=== PATIENT | male | born 1995 | race Caucasian/White ===

== ENCOUNTER 2018-09-03 12:44 | Emergency (ER) | payer BC, OTHER ==
[2018-09-03 12:53] VITALS: BP 126/66; PULSE 84; RESP 20; TEMP 98
[2018-09-03] MEDS ORDERED: DIPH,PERTUS(ACELL)TETVAC-LF 0.5 ML VIAL IM ONE (13:26)
--- NOTE | 2018-09-03 13:29 | ED ---
General Adult HPI - General Chief complaint: Fall Stated complaint: toe injury Time Seen by Provider: 09/03/18 12:57 Source: patient, RN notes reviewed Mode of arrival: ambulatory Limitations: no limitations - History of Present Illness Initial comments: Patient is a 22-year-old male presented to the emergency room today with a chief complaint of an injury to the right fifth toe that occurred 2 days ago. Patient does admit that his dog got loose and he had to run outside. He states he was barefoot and slipped on the ice causing a laceration to the fifth digit of the right foot. Patient states that he is unsure of his tetanus status. He does admit that he came here to the emergency room because he missed work yesterday and was told that he needed a work note. Patient denies any head injury or loss conscious. Denies any other complaints or symptoms. - Related Data Home Medications Medication Instructions Recorded Confirmed No Known Home Medications 09/03/18 09/03/18 Allergies Allergy/AdvReac Type Severity Reaction Status Date / Time No Known Allergies Allergy Verified 09/03/18 13:08 Review of Systems ROS Statement: Those systems with pertinent positive or pertinent negative responses have been documented in the HPI. ROS Other: All systems not noted in ROS Statement are negative. Past Medical History Additional Past Medical History / Comment(s): IgA nephropathy History of Any Multi-Drug Resistant Organisms: None Reported Past Surgical History: No Surgical Hx Reported Past Anesthesia/Blood Transfusion Reactions: No Reported Reaction Past Psychological History: ADD/ADHD Smoking Status: Never smoker Past Alcohol Use History: None Reported Past Drug Use History: None Reported - Past Family History Father Family Medical History: No Reported History Mother Additional Family Medical History / Comment(s): Bipolar General Exam - General Exam Comments Initial Comments: General: The patient is awake and alert, in no distress, and does not appear acutely ill. Eye: extra-ocular movements are intact. There is normal conjunctiva bilaterally. No signs of icterus. Musculoskeletal: Normal ROM, no tenderness. Strength 5/5. Sensation intact. Pulses equal bilaterally 2+. Neurological: A&O x 3. CN II-XII intact, There are no obvious motor or sensory deficits. Coordination appears grossly intact. Speech is normal. Skin: Does have a flap-type laceration approximately 1 cm to the right fifth toe. No active bleeding. Psychiatric: Cooperative, appropriate mood & affect, normal judgment. Limitations: no limitations Course Vital Signs 09/03/18 12:50 Temperature 98.0 F Pulse Rate 84 Respiratory 20 Rate Blood Pressure 126/66 O2 Sat by Pulse 99 Oximetry Medical Decision Making - Medical Decision Making Patient tetanus updated here in the emergency room. He states the main reason for coming here is that neither work note for work. Patient does have a laceration that digit of the right toe has been open for the past 2 days. Bandage was placed over top. Advised watching for signs of action. Advised return for any other concerns. Disposition Clinical Impression: Toe laceration Disposition: HOME SELF-CARE Condition: Good Additional Instructions: Please watch for any signs of infection which may include increased pain, swelling, redness, fever or chills. Please return to emergency room if the symptoms increase or worsen or for any other concerns. Is patient prescribed a controlled substance at d/c from ED?: No Referrals: None,Stated [Primary Care Provider] - 1-2 days Time of Disposition: 13:28
== END 2018-09-03 14:22 | disposition home or self-care (01) ==
LOC: EC 12:44
DX: S91.114A Laceration without foreign body of right lesser toe(s) without damage to nail, initial encounter (principal); Z23 Encounter for immunization; W00.0XXA Fall on same level due to ice and snow, initial encounter; Y92.89 Other specified places as the place of occurrence of the external cause
CPT/HCPCS: 90471; 90715; 99283

== ENCOUNTER → 2020-09-03 | Outpatient (CLI) | payer OTHER | END | disposition home or self-care (01) | LOC: LABWHC1 15:27 | PROVIDERS: ATTEND Family Medicine | DX: Z20.822 Contact with and (suspected) exposure to COVID-19 (principal) | CPT/HCPCS: U0003; C9803 ==

== ENCOUNTER 2021-04-02 19:49 | Emergency (ER) | payer OTHER ==
[2021-04-02 20:07] VITALS: RESP 18; TEMP 97.3
[2021-04-02] MEDS ORDERED: MORPHINE SULFATE 4 MG/ML SYRINGE IM STA (20:17)
--- NOTE | 2021-04-02 21:04 | CT ---
EXAMINATION TYPE: CT brain cspine wo con DATE OF EXAM: 04/02/2021 COMPARISON: None HISTORY: [address] DLP: 1396 mGycm Automated exposure control for dose reduction was used. Brain and cervical spine CT scan without contrast. Ventricles have normal size. There is no mass effect nor midline shift. There is no sign of intracran ial hemorrhage. Calvarium is intact. There is normal aeration of the mastoid sinuses. Cervical vertebra have normal alignment. Posterior elements are intact. Facet joints are intact. Disc spaces are fairly normal. Prevertebral soft tissues are intact. IMPRESSION: Normal CT scan of the cervical spine. No fracture. Normal CT scan of the brain.
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
[2021-04-02 21:37] VITALS: BP 118/72; PULSE 72
== END 2021-04-02 21:38 | disposition home or self-care (01) ==
LOC: EC 19:49
DX: S06.0X0A Concussion without loss of consciousness, initial encounter (principal); S00.81XA Abrasion of other part of head, initial encounter; M79.601 Pain in right arm; M79.605 Pain in left leg; F90.9 Attention-deficit hyperactivity disorder, unspecified type; Z87.891 Personal history of nicotine dependence; V40.9XXA Unspecified car occupant injured in collision with pedestrian or animal in traffic accident, initial encounter; Y92.410 Unspecified street and highway as the place of occurrence of the external cause
CPT/HCPCS: 99284; 96372; 72125; 70450; J2270

== ENCOUNTER → 2021-07-28 | Outpatient (CLI) | payer OTHER | END | disposition home or self-care (01) | LOC: LABWHC1 12:48 | PROVIDERS: ATTEND Family Medicine | DX: U07.1 COVID-19 (principal) | CPT/HCPCS: U0003; C9803; U0005 ==

== ENCOUNTER 2022-02-20 04:22 | Inpatient (IN) | payer OTHER ==
[2022-02-20 05:51] LABS: Basophils % (A) 1 %; Eosinophils # (A) 0.2 k/uL (0-0.7); Eosinophils % (A) 2 %; HCT 47.2 % (39.0-53.0); HGB 15.9 gm/dL (13.0-17.5); Lymphocytes # (A) 2.1 k/uL (1.0-4.8); Lymphocytes % (A) 24 %; MCHC 33.7 g/dL (31.0-37.0); MCV 89.1 fL (80.0-100.0); Mean Platelet Volume 7.7; Monocytes # (A) 0.5 k/uL (0-1.0); Monocytes % (A) 5 %; Neutrophils # (A) 5.6 k/uL (1.3-7.7); Neutrophils % (A) 66 %; Platelet Count 259 k/uL (150-450); WBC 8.5 k/uL (3.8-10.6)
--- NOTE | 2022-02-20 05:53 | ED ---
General Adult HPI - General Chief complaint: Overdose Stated complaint: Overdose Time Seen by Provider: 02/20/22 05:03 Source: EMS Mode of arrival: EMS - History of Present Illness Initial comments: Dictation was produced using [employer] dictation software. please excuse any gr ammatical, word or spelling errors. Chief Complaint: 26-year-old male presents emergency department for overdose History of Present Illness: 25-year-old male he has past medical history of IgA nephropathy. Patient brought in by EMS for overdose. Patient took several unknown pills at unknown times. Patient is a poor historian due to mental status changes. Patient states he does have some pain to his left ankle and left foot. Patient reports he took all these pills because voices were telling him to. Unable to obtain ROS secondary to mental status PHYSICAL EXAM: General Impression: Alert, eyes closed, not in acute distress, follows commands HEENT: Normocephalic atraumatic, extra-ocular movements intact, pupils equal and reactive to light bilaterally, mucous membranes moist. Cardiovascular: Heart regular rate and rhythm Chest: no retractions, no tachypnea Abdomen: abdomen soft, non-tender, non-distended, no organomegaly Musculoskeletal: Pulses present and equal in all extremities, no peripheral edema, no gross deformity to the left ankle and left foot Motor: no focal deficits noted Neurological: CN II-XII grossly intact, no focal motor or sensory deficits noted Skin: Intact with no visualized rashes ED course: 26-year-old male presents after overdose. He took several unknown pills over the course of an unknown amount of time. Vital signs upon arrival s hows heart rate 1:15, rest of vital signs within acceptable limits. Medical presentation not obvious for any specific toxidrome. Laboratory evaluation obtained per it CBC and markable P metabolic panel is negative. Tox labs are negative. No acidosis. No concern for toxic overdose at this time. Foot x-ray and ankle x-ray is negative. Patient presents with pill bottles brought in from the scene. Those included psych medications as well as blood pressure medications. Patient's vital signs were trended. His blood pressure is normal. Patient reevaluated at bedside at 6:23 AM. He is well-appearing. Patient is interactive and smiling. Patient was reevaluated at 6:57 AM. He does have these episodes of somnolence. His blood pressure does remain stable. Patient be admitted medically to Dr. Coleman with psychiatry in consultation. EKG interpretation: Ventricular rate 115, sinus tachycardia,. Interval 177, QS 114, QTc 437. No [place] prolongation, no QTC prolongation, no ST or T-wave changes noted. Note EKG for comparison. Overall this EKG is nonspecific. - Related Data Home Medications Medication Instructions Recorded Confirmed No Known Home Medications 09/03/18 09/03/18 Allergies Allergy/AdvReac Type Severity Reaction Status Date / Time No Known Allergies Allergy Verified 04/02/21 20:07 Review of Systems ROS Statement: Those systems with pertinent positive or pertinent negative responses have been documented in the HPI. ROS Other: All systems not noted in ROS Statement are negative. Past Medical History Additional Past Medical History / Comment(s): IgA nephropathy History of Any Multi-Drug Resistant Organisms: None Reported Past Surgical History: No Surgical Hx Reported Past Anesthesia/Blood Transfusion Reactions: No Reported Reaction Past Psychological History: ADD/ADHD Smoking Status: Former smoker Past Alcohol Use History: None Reported Past Drug Use History: None Reported - Past Family History Father Family Medical History: No Reported History Mother Additional Family Medical History / Comment(s): Bipolar Course Vital Signs 02/20/22 02/20/22 02/20/22 04:23 05:48 06:55 Temperature 98.1 F Pulse Rate 115 H 112 H 109 H Respiratory 22 12 12 Rate Blood Pressure 113/63 118/61 113/61 O2 Sat by Pulse 96 95 94 L Oximetry 02/20/22 07:21 Temperature Pulse Rate 112 H Respiratory 20 Rate Blood Pressure 109/52 O2 Sat by Pulse 95 Oximetry Medical Decision Making - Lab Data Result diagrams: 02/20/22 05:32 02/20/22 05:34 Lab Results 02/20/22 02/20/22 02/20/22 Range/Units 05:32 05:32 05:32 WBC 8.5 (3.8-10.6) k/uL RBC 5.30 (4.30-5.90) m/uL Hgb 15.9 (13.0-17.5) gm/dL Hct 47.2 (39.0-53.0) % MCV 89.1 (80.0-100.0) fL MCH 30.0 (25.0-35.0) pg MCHC 33.7 (31.0-37.0) g/dL RDW 12.0 (11.5-15.5) % Plt Count 259 (150-450) k/uL MPV 7.7 Neutrophils % 66 % Lymphocytes % 24 % Monocytes % 5 % Eosinophils % 2 % Basophils % 1 % Neutrophils # 5.6 (1.3-7.7) k/uL Lymphocytes # 2.1 (1.0-4.8) k/uL Monocytes # 0.5 (0-1.0) k/uL Eosinophils # 0.2 (0-0.7) k/uL Basophils # 0.0 (0-0.2) k/uL PT 10.8 (9.0-12.0) sec INR 1.0 (<1.2) APTT 21.1 L (22.0-30.0) sec Sodium (137-145) mmol/L Potassium (3.5-5.1) mmol/L Chloride (98-107) mmol/L Carbon Dioxide (22-30) mmol/L Anion Gap mmol/L BUN (9-20) mg/dL Creatinine (0.66-1.25) mg/dL Est GFR (CKD-EPI)AfAm (>60 ml/min/1.73 sqM) Est GFR (CKD-EPI)NonAf (>60 ml/min/1.73 sqM) Glucose (74-99) mg/dL Osmolality (280-301) mosm/kg Plasma Lactic Acid John 1.8 (0.7-2.0) mmol/L Calcium (8.4-10.2) mg/dL Magnesium (1.6-2.3) mg/dL Total Bilirubin (0.2-1.3) mg/dL AST (17-59) U/L ALT (4-49) U/L Alkaline Phosphatase (38-126) U/L Total Protein (6.3-8.2) g/dL Albumin (3.5-5.0) g/dL Salicylates mg/dL Acetaminophen ug/mL Serum Alcohol mg/dL 02/20/22 Range/Units 05:34 WBC (3.8-10.6) k/uL RBC (4.30-5.90) m/uL Hgb (13.0-17.5) gm/dL Hct (39.0-53.0) % MCV (80.0-100.0) fL MCH (25.0-35.0) pg MCHC (31.0-37.0) g/dL RDW (11.5-15.5) % Plt Count (150-450) k/uL MPV Neutrophils % % Lymphocytes % % Monocytes % % Eosinophils % % Basophils % % Neutrophils # (1.3-7.7) k/uL Lymphocytes # (1.0-4.8) k/uL Monocytes # (0-1.0) k/uL Eosinophils # (0-0.7) k/uL Basophils # (0-0.2) k/uL PT (9.0-12.0) sec INR (<1.2) APTT (22.0-30.0) sec Sodium 140 (137-145) mmol/L Potassium 4.6 (3.5-5.1) mmol/L Chloride 105 (98-107) mmol/L Carbon Dioxide 24 (22-30) mmol/L Anion Gap 11 mmol/L BUN 14 (9-20) mg/dL Creatinine 0.95 (0.66-1.25) mg/dL Est GFR (CKD-EPI)AfAm >90 (>60 ml/min/1.73 sqM) Est GFR (CKD-EPI)NonAf >90 (>60 ml/min/1.73 sqM) Glucose 107 H (74-99) mg/dL Osmolality 293 (280-301) mosm/kg Plasma Lactic Acid John (0.7-2.0) mmol/L Calcium 9.5 (8.4-10.2) mg/dL Magnesium 1.8 (1.6-2.3) mg/dL Total Bilirubin 1.0 (0.2-1.3) mg/dL AST 45 (17-59) U/L ALT 39 (4-49) U/L Alkaline Phosphatase 76 (38-126) U/L Total Protein 8.7 H (6.3-8.2) g/dL Albumin 5.0 (3.5-5.0) g/dL Salicylates <1.0 mg/dL Acetaminophen <10.0 ug/mL Serum Alcohol <10 mg/dL Disposition Clinical Impression: Overdose, Psychosis Disposition: ADMITTED IP TO THIS [facility] Condition: Stable Referrals: Herve Coleman MD [Primary Care Provider] - 1-2 days Decision Time: 07:26
[2022-02-20 06:00] LABS: ALT 39 U/L (4-49); Acetaminophen <10.0 ug/mL; African American GFR (CKD) >90 (>60 ml/min/1.73 sqM); Alcohol <10 mg/dL; Anion Gap 11 mmol/L; Blood Urea Nitrogen 14 mg/dL (9-20); Calcium 9.5 mg/dL (8.4-10.2); Carbon Dioxide 24 mmol/L (22-30); Chloride 105 mmol/L (98-107); Glucose 107 mg/dL (74-99); Non-African American GFR(CKD) >90 (>60 ml/min/1.73 sqM); Salicylate <1.0 mg/dL; Sodium 140 mmol/L (137-145); Total Protein 8.7 g/dL (6.3-8.2)
[2022-02-20 06:02] LABS: AST 45 U/L (17-59); Alkaline Phosphatase 76 U/L (38-126); Magnesium 1.8 mg/dL (1.6-2.3); Potassium 4.6 mmol/L (3.5-5.1)
[2022-02-20 06:06] LABS: Prothrombin Time 10.8 sec (9.0-12.0)
--- NOTE | 2022-02-20 06:09 | XR ---
EXAMINATION TYPE: XR foot limited LT DATE OF EXAM: 02/20/2022 COMPARISON: NONE HISTORY: Foot pain TECHNIQUE: 2 views FINDINGS: Metatarsals are intact. The toes appear intact. The hindfoot is intact. No fracture seen. IMPRESSION: Negative left foot exam.
--- NOTE | 2022-02-20 06:09 | XR ---
EXAMINATION TYPE: XR ankle limited LT DATE OF EXAM: 02/20/2022 COMPARISON: NONE HISTORY: Ankle pain TECHNIQUE: 2 views FINDINGS: Ankle mortise is anatomic. I see no fracture nor dislocation. Joint spaces are normal. IMPRESSION: Negative left ankle exam.
--- NOTE | 2022-02-20 06:17 | CT ---
EXAMINATION TYPE: CT brain wo con DATE OF EXAM: 02/20/2022 COMPARISON: 04/02/2021 HISTORY: AMS CT DLP: 1090.4 mGycm Automated exposure control for dose reduction was used. Ventricles and sulci appear normal. There is no mass effect or midline shift. No sign of intracranial hemorrhage. The calvarium is intact. IMPRESSION: Normal unenhanced head CT scan. No change compared to old exam
[2022-02-20 06:22] LABS: Partial Thromboplastin Time 21.1 sec (22.0-30.0)
[2022-02-20] MEDS ORDERED: SODIUM CHLORIDE 0.9% 1,000 ML IV STA (06:32)
[2022-02-20] MEDS ORDERED: NALOXONE 0.4 MG/ML 1 ML VIAL IV PRN (07:14)
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
[2022-02-20 09:39] LABS: Amphetamine Screen,Urine Not Detected (NotDetected); Barbiturate Screen,Urine Not Detected (NotDetected); Benzodiazepines Screen,Urine Not Detected (NotDetected); Cocaine Screen,Urine Not Detected (NotDetected); Methadone Screen, Urine Not Detected (NotDetected); Opiate Screen,Urine Not Detected (NotDetected); Oxycodone Screen, Urine Not Detected (NotDetected); Phencyclidine Screen,Urine Not Detected (NotDetected); Tricyclic Antidepressant,Urine Detected (NotDetected); Urn Cannabinoid Scrn Detected (NotDetected)
--- NOTE | 2022-02-20 15:17 | P.CN ---
Psychiatric Consult - . Consult date: 02/20/22 Consult:: 02/20/22 15:16 consult completed, relayed recommendations to RN. plan for inpatient psych transfer once medically cleared. 1:1 sitter for safety. complete note to follow.
[2022-02-20] MEDS: PALIPERIDONE 3 MG TAB.ER.24 PO SCH (20:10)
--- NOTE | 2022-02-21 03:59 | CONS ---
CONSULTATION IDENTIFYING DATA: The patient is a 26-year-old male who currently lives alone in a house. He is single. No kids and is currently unemployed. REASON FOR CONSULTATION: Overdose, psychosis. HISTORY OF PRESENT ILLNESS: The patient was brought into the emergency room for evaluation by EMS on 02/20/2022. The patient apparently had an overdose at home on several unknown pills. The patient was lethargic and had altered mental status on admission to the medical floors. The patient had a positive urine drug screen for TCA and THC. The patient was seen today by screenplay writer for consultation evaluation. The patient was lying in his bed sleeping and was difficult to awaken by screenplay writer. The patient was fairly lethargic during conversation and was fairly concrete and barely opened his eyes to acknowledge screenplay writer. He claims that "the voices told me to do it" referring to the overdose. He states that he has been seeing a "woman in black" and states that she disappeared and now is in the form of only a voice. He states that it is "freaking me out." He claims that the voices have become more stronger lately and telling him to do more negative things. He states that the voices started a few months ago after he got fired from his job. He states that "the lady told me to cut the fence" at his job and states that his boss found out and fired him. He has fairly superficial insight and very poor judgment. He claims that his girlfriend was very concerned about him and wanted him to get evaluated in the hospital. He states that he is not feeling depressed at this time, however, does report anxiety. He is claiming that his sleep is fair, appetite is fair. He is denying any suicidal or homicidal ideations, intent, or plan. He continues to endorse auditory hallucinations and denying any current visual hallucinations. Not endorsing any paranoia at this time. PAST PSYCHIATRIC HISTORY: The patient denies any previous psychiatric history, denies any previous diagnoses, claims that he has never been admitted to a psychiatric hospital and never had any psychiatric medications. He does not see a therapist or psychiatrist. He does not report any history of previous suicide attempts. SUBSTANCE USE HISTORY: The patient was fairly vague about his substance use history, however, does state that he is not using any drugs at this time. He claims that he does smoke cigarettes occasionally. He was positive for THC in his urine. FAMILY HISTORY: He states that his mother has some form of psychiatric illness. SOCIAL HISTORY: He states that he was born and raised in the [place] area. He claims that he completed high school. He states that he used to work at a [employer] locally. However, he is now unemployed. He states that he lives alone in a house. He is single, has no kids. Denies any legal history. MENTAL STATUS EXAMINATION: The patient is a male, has a walden, wearing a mask and lying on the bed and appears to be fairly lethargic. He is difficult to engage with and is fairly concrete and monotone in his speech. Patient claims that his mood is "fine." However, he is fairly constricted in his affect. The patient is concrete, poverty of content, logical. He is endorsing auditory hallucinations telling him what to do and to harm himself and is not reporting any current visual hallucinations. He is denying any suicidal/homicidal ideations, intent, or plan. He is not endorsing any paranoia or delusions at this time. The patient is lethargic, however, is oriented x3, poor concentration during conversation. Superficial insight and poor judgment. ASSESSMENT: 1. Psychosis, unspecified, ruled out secondary to substance use. 2. Cannabis use disorder. 3. Nicotine dependence. 4. Overdose on medication. PLAN: At this time, the patient does meet criteria for inpatient psychiatric admission as patient had overdose trying to kill himself and is actively psychotic. At this time, we will start paliperidone p.o. 3 mg q.h.s. for psychosis. I informed the patient's nurse that the patient should be on suicide precautions and one-to-one sitter for safety until he is transferred to the psychiatric floors or mental health unit. At this time, Psychiatry will sign off. MMODL / IJN: [id number] /
--- NOTE | 2022-02-21 08:29 | P.DS ---
Providers Date of admission: 02/20/22 07:14 Attending physician: Herve Coleman Consults: 02/20/22 06:55 Consult Physician Routine Consulting Provider: Dash Avalos Consult Reason/Comments: overdose, psychosis Do you want consulting provider notified?: Already Contacted Primary care physician: Herve Coleman - Discharge Diagnosis(es) (1) Overdose Current Visit: Yes Status: Acute (2) Psychosis Current Visit: Yes Status: Acute (3) Acute renal failure Current Visit: No Status: Acute (4) Nausea & vomiting Current Visit: No Status: Acute Hospital Course: The patient is a 26-year-old white male who essentially overdosed on medications. Psychiatry was consulted and he is now been medically cleared. Neurologically and cognitively he seems to be stable. Mini-Mental Status exam was done and he scored 28 out of 30. He was unable to tell me the exact day of the week and the day of the month. However all his cognitive skills are appropriate and he is cleared for discharge to psychiatric unit after being evaluated by psychiatry. Patient Condition at Discharge: Stable Plan - Discharge Summary Discharge Rx Participant: No New Discharge Prescriptions: No Action No Known Home Medications Discharge Medication List No Known Home Medications 09/03/18 [History] Follow up Appointment(s)/Referral(s): Herve Coleman MD [Primary Care Provider] - 1-2 days Discharge Disposition: TRANSFER TO PSYCH HOSP/UNIT
[2022-02-21 10:40] LABS: HCT 42.4 % (39.6-50.0); HGB 14.4 g/dL (13.0-17.0); MCH 29.9 pg (27.0-32.0); Mean Platelet Volume 10.5 fL (9.5-12.2); NRBC Per 100 WBC 0 /100 WBCS (0.0-0.0); Platelet Count 239 X 10*3/uL (140-440); RBC 4.82 X 10*6/uL (4.40-5.60); WBC 5.53 X 10*3/uL (4.50-10.00)
[2022-02-21 10:52] LABS: Albumin 4.2 g/dL (3.8-4.9); Albumin/Globulin Ratio 1.91 (1.60-3.17); Anion Gap 11.7 mmol/L (10.00-18.00); BUN/Creat Ratio 20.14 Ratio (12.00-20.00); Blood Urea Nitrogen 14.1 mg/dL (9.0-27.0); Calcium 8.9 mg/dL (8.7-10.3); Carbon Dioxide 24.3 mmol/L (20.0-27.5); Globulin 2.2 g/dL (1.6-3.3); Non-African American GFR(CKD) 131.2 (60.0-200.0); Potassium 4.1 mmol/L (3.5-5.5); Total Bilirubin 0.4 mg/dL (0.30-1.20); Total Protein 6.4 g/dL (6.2-8.2)
[2022-02-21] MEDS: PALIPERIDONE 3 MG TAB.ER.24 PO SCH (20:26)
[2022-02-21] MEDS ORDERED: ACETAMINOPHEN TAB 325 MG TAB PO PRN ×2 (23:33)
--- NOTE | 2022-02-22 12:08 | P.PN ---
Progress Note - Text Progress Note Date: 02/22/22 Interval history: Patient was seen today for psychiatric follow up and was directable and agree able to speak with story writer. [Patient was more awake today and directable during conversation. He claims that the medications have been helping him significantly. He states that he was hearing voices telling him to overdose before coming into the hospital however now states that since being in the hospital they have completely stopped. 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 He states that he is not depressed and denies any anxiety, claims that he is sleeping well. fair appetite. He states that he does not have access to guns or weapons]. At this time patient denies any suicidal or homicidal ideations intent or plan. Denies any Auditory or visual hallucinations. Patient denies any side effects from the medications and has been compliant with meds. Mental status exam: General Appearance: [Patient appears to be stated age is alert, directable, and cooperative.] Behavior: [No agitated behavior. Patient is calm and directable] Speech: Patient's speech is fluent and nonpressured. Mood/Affect: Mood is improving mildly, affect is congruent and constricted. Suicidality/Homicidality: Patient denies having any suicidal or homicidal ideation intent or plan. Perceptions: Patient denies any auditory or visual hallucinations. Though content/process: [There is no evidence of any delusional thought content and thought process is linear and goal-directed.] future oriented. Memory and concentration: AOX3, grossly intact for the purposes of this session Judgment and insight: improving mildly Assessment/Plan: Continue with current diagnosis. Patients symptoms have resolved and he is doing much better. He is not endorsing psychotic sx and not endorsing thoughts of self harm or harm to others. At this time patient can discharged home once medically clear as he is taking his antipsychotics and improved. He was informed of med compliance and will be given outpatient psych follow up.can d/c1:1 sitter. Spoke with Nurse and SW and advised to call father to make sure envt is safe with no guns or weapons and they can watch him and also to ensure patient has an outpatient psych appointment. Patient was informed if his sx worsen or come back then come back to the hospital or call the crisis line. Continue with Invega 3 mg qhs for psychosis. Please call with any questions.
[2022-02-22 12:40] VITALS: RESP 18; TEMP 98.1
[2022-02-22 13:58] VITALS: BP 145/68; PULSE 121
== END 2022-02-22 15:05 | disposition home or self-care (01) | DRG 918 ==
LOC: EC 04:22 → 5NMEDONC 07:14
PROVIDERS: ADMIT Family Medicine; ATTEND Family Medicine
DX: T50.912A Poisoning by multiple unspecified drugs, medicaments and biological substances, intentional self-harm, initial encounter (principal); N17.9 Acute kidney failure, unspecified; N02.8 Recurrent and persistent hematuria with other morphologic changes; F29 Unspecified psychosis not due to a substance or known physiological condition; F12.10 Cannabis abuse, uncomplicated; F17.210 Nicotine dependence, cigarettes, uncomplicated; F41.9 Anxiety disorder, unspecified; F90.9 Attention-deficit hyperactivity disorder, unspecified type; Z56.0 Unemployment, unspecified; R11.2 Nausea with vomiting, unspecified; Z28.21 Immunization not carried out because of patient refusal
CPT/HCPCS: 36415; 70450; 80053; 80143; 80179; 80306; 80320; 82075; 83605; 83735; 83930; 85025; 85027; 85610; 85730; 93005; 96360; 99285

== ENCOUNTER 2022-08-17 07:24 | Emergency (ER) | payer OTHER ==
[2022-08-17 07:36] VITALS: TEMP 97.5
--- NOTE | 2022-08-17 08:10 | ED ---
Psych HPI - General Chief Complaint: Psychiatric Symptoms Stated Complaint: Mental health Time Seen by Provider: 08/17/22 07:31 Source: patient, RN notes reviewed Mode of arrival: ambulatory Limitations: no limitations - History of Present Illness Initial Comments: 26-year-old male presents emergency Department with mother for evaluation of psychiatric issues. Patient does have a history of psychosis. Patient reportedly has been hearing voices for several months unable to get a psychiatrist. Patient is not very forthcoming with information he doesn't to marijuana use he denies any current alcohol use denies went to suicidal ideation or homicidal ideation no physical complaints. - Related Data Home Medications Medication Instructions Recorded Confirmed No Known Home Medications 09/03/18 08/17/22 Allergies Allergy/AdvReac Type Severity Reaction Status Date / Time poison khang extract Allergy Unknown Verified 08/17/22 12:20 Review of Systems ROS Statement: Those systems with pertinent positive or pertinent negative responses have been documented in the HPI. ROS Other: All systems not noted in ROS Statement are negative. Past Medical History Past Medical History: Renal Disease Additional Past Medical History / Comment(s): IgA nephropathy, short period of hemodialysis at age 15 yrs. History of Any Multi-Drug Resistant Organisms: None Reported Past Surgical History: No Surgical Hx Reported Past Anesthesia/Blood Transfusion Reactions: No Reported Reaction Past Psychological History: ADD/ADHD Smoking Status: Current every day smoker Past Drug Use History: Marijuana - Past Family History Father Family Medical History: No Reported History Mother Additional Family Medical History / Comment(s): Bipolar General Exam Limitations: no limitations General appearance: alert, in no apparent distress Head exam: Present: atraumatic, normocephalic, normal inspection Eye exam: Present: normal appearance, PERRL, EOMI. Absent: scleral icterus, conjunctival injection, periorbital swelling ENT exam: Present: normal exam, normal oropharynx, mucous membranes moist Neck exam: Present: normal inspection, full ROM. Absent: tenderness, me ningismus, lymphadenopathy Respiratory exam: Present: normal lung sounds bilaterally. Absent: respiratory distress, wheezes, rales, rhonchi, stridor Cardiovascular Exam: Present: regular rate, normal rhythm, normal heart sounds. Absent: systolic murmur, diastolic murmur, rubs, gallop, clicks GI/Abdominal exam: Present: soft, normal bowel sounds. Absent: distended, tenderness, guarding, rebound, rigid Neurological exam: Present: alert Psychiatric exam: Present: flat affect Skin exam: Present: warm, dry, intact, normal color. Absent: rash Course Vital Signs 08/17/22 08/17/22 07:31 08:21 Temperature 97.5 F L Pulse Rate 75 88 Respiratory 16 20 Rate Blood Pressure 143/84 158/75 O2 Sat by Pulse 99 100 Oximetry - Reevaluation(s) Reevaluation #1: 08/17/22 10:26 Patient was evaluated by EPS, psychiatrists planning to order CBC, CMP and CT brain. Medical Decision Making - Medical Decision Making Was pt. sent in by a medical professional or institution (, [facility], PROFESSIONAL NURSING TUTOR, urgent care, hospital, or retirement...) When possible be specific @ -No Did you speak to anyone other than the patient for history (EMS, parent, family, police, friend...)? What history was obtained from this source @ -No Did you review nursing and triage notes (agree or disagree)? Why? @ -I reviewed and agree with nursing and triage notes Were old charts reviewed (outside hosp., previous admission, EMS record, old EKG, old radiological studies, urgent care reports/EKG's, retirement records)? Report findings @ -No old charts were reviewed Differential Diagnosis (chest pain, altered mental status, abdominal pain women, abdominal pain men, vaginal bleeding, weakness, fever, dyspnea, syncope, headache, dizziness, GI bleed, back pain, seizure, CVA, palpatations, mental health)? @ -Psychosis, schizophrenia, bipolar, depression, anxiety EKG interpreted by me (3pts min.). @ -None X-rays interpreted by me (1pt min.). @ -None done CT interpreted by me (1pt min.). @ -None done U/S interpreted by me (1pt. min.). @ -None done What testing was considered but not performed or refused? (CT, X-rays, U/S, labs)? Why? @ -None What meds were considered but not given or refused? Why? @ -None Did you discuss the management of the patient with other professionals (professionals i.e. [facility], PROFESSIONAL NURSING TUTOR, lab, RT, psych nurse, manager social media, internet database specialist, teacher, conservation officer, caser)? Give summary @ -EPS, psychiatrist who evaluated the patient and recommended labs and feel that the patient is stable for discharge given his current symptoms and discussion with family Was smoking cessation discussed for >3mins.? @ -No Was critical care preformed (if so, how long)? @ -No Were there social determinants of health that impacted care today? How? (Homelessness, low income, unemployed, alcoholism, drug addiction, transportation, low edu. Level, literacy, decrease access to med. care, usp, rehab)? @ -No Was there de-escalation of care discussed even if they declined (Discuss DNR or withdrawal of care, Hospice)? DNR status @ -No What co-morbidities impacted this encounter? (DM, HTN, Smoking, COPD, CAD, Cancer, CVA, ARF, Chemo, Hep., AIDS, mental health diagnosis, sleep apnea, morbid obesity)? @ -None Was patient admitted / discharged? Hospital course, mention meds given and route, prescriptions, significant lab abnormalities, going to OR and other pertinent info. @ -Discharge patient has a safety plan and family agree the patient can be discharged did not want petition the patient and he is not suicidal or homicidal. Undiagnosed new problem with uncertain prognosis? @ -No Drug Therapy requiring intensive monitoring for toxicity (Heparin, Nitro, Insulin, Cardizem)? @ -No Were any procedures done? @ -No Diagnosis/symptom? @ -Psychosis Acute, or Chronic, or Acute on Chronic? @ -Acute Uncomplicated (without systemic symptoms) or Complicated (systemic symptoms)? @ -Uncomplicated Side effects of treatment? @ -No Exacerbation, Progression, or Severe Exacerbation? @ -No Poses a threat to life or bodily function? How? (Chest pain, USA, CA, pneumonia, PE, COPD, DKA, ARF, appy, cholecystitis, CVA, Diverticulitis, Homicidal, Suicidal, threat to staff... and all critical care pts) @ -No - Lab Data Result diagrams: 08/17/22 10:36 08/17/22 10:36 Lab Results 08/17/22 08/17/22 08/17/22 Range/Units 08:25 10:36 10:36 WBC 6.4 (3.8-10.6) k/uL RBC 5.47 (4.30-5.90) m/uL Hgb 16.1 (13.0-17.5) gm/dL Hct 47.3 (39.0-53.0) % MCV 86.5 (80.0-100.0) fL MCH 29.4 (25.0-35.0) pg MCHC 34.0 (31.0-37.0) g/dL RDW 12.3 (11.5-15.5) % Plt Count 197 (150-450) k/uL MPV 8.2 Neutrophils % 68 % Lymphocytes % 22 % Monocytes % 5 % Eosinophils % 3 % Basophils % 1 % Neutrophils # 4.3 (1.3-7.7) k/uL Lymphocytes # 1.4 (1.0-4.8) k/uL Monocytes # 0.3 (0-1.0) k/uL Eosinophils # 0.2 (0-0.7) k/uL Basophils # 0.0 (0-0.2) k/uL Sodium 142 (137-145) mmol/L Potassium 4.4 (3.5-5.1) mmol/L Chloride 105 (98-107) mmol/L Carbon Dioxide 28 (22-30) mmol/L Anion Gap 9 mmol/L BUN 14 (9-20) mg/dL Creatinine 0.70 (0.66-1.25) mg/dL Est GFR (CKD-EPI)AfAm >90 (>60 ml/min/1.73 sqM) Est GFR (CKD-EPI)NonAf >90 (>60 ml/min/1.73 sqM) Glucose 89 (74-99) mg/dL Calcium 9.5 (8.4-10.2) mg/dL Total Bilirubin 1.0 (0.2-1.3) mg/dL AST 37 (17-59) U/L ALT 46 (4-49) U/L Alkaline Phosphatase 76 (38-126) U/L Total Protein 8.9 H (6.3-8.2) g/dL Albumin 5.2 H (3.5-5.0) g/dL Urine Opiates Screen Not Detected (NotDetected) Ur Oxycodone Screen Not Detected (NotDetected) Urine Methadone Screen Not Detected (NotDetected) Ur Propoxyphene Screen Not Detected (NotDetected) Ur Barbiturates Screen Not Detected (NotDetected) U Tricyclic Antidepress Not Detected (NotDetected) Ur Phencyclidine Scrn Not Detected (NotDetected) Ur Amphetamines Screen Not Detected (NotDetected) U Methamphetamines Scrn Not Detected (NotDetected) U Benzodiazepines Scrn Not Detected (NotDetected) Urine Cocaine Screen Not Detected (NotDetected) U Marijuana (THC) Screen Detected H (NotDetected) Disposition Clinical Impression: Psychosis Disposition: HOME SELF-CARE Condition: Stable Instructions (If sedation given, give patient instructions): Psychotic Disorder (ED) Additional Instructions: Please return to the Emergency Department if symptoms worsen or any other concerns. Is patient prescribed a controlled substance at d/c from ED?: No Referrals: Herve Coleman MD [Primary Care Provider] - 1-2 days Time of Disposition: 12:42
[2022-08-17 08:21] VITALS: BP 158/75; PULSE 88; RESP 20
[2022-08-17 10:13] LABS: Amphetamine Screen,Urine Not Detected (NotDetected); Barbiturate Screen,Urine Not Detected (NotDetected); Benzodiazepines Screen,Urine Not Detected (NotDetected); Cocaine Screen,Urine Not Detected (NotDetected); Methadone Screen, Urine Not Detected (NotDetected); Opiate Screen,Urine Not Detected (NotDetected); Oxycodone Screen, Urine Not Detected (NotDetected); Phencyclidine Screen,Urine Not Detected (NotDetected); Tricyclic Antidepressant,Urine Not Detected (NotDetected); Urn Cannabinoid Scrn Detected (NotDetected)
[2022-08-17] MEDS ORDERED: LORazepam 1 MG TAB PO STA (10:13)
[2022-08-17 11:03] LABS: Basophils % (A) 1 %; Eosinophils # (A) 0.2 k/uL (0-0.7); Eosinophils % (A) 3 %; HCT 47.3 % (39.0-53.0); HGB 16.1 gm/dL (13.0-17.5); Lymphocytes # (A) 1.4 k/uL (1.0-4.8); Lymphocytes % (A) 22 %; MCH 29.4 pg (25.0-35.0); MCV 86.5 fL (80.0-100.0); Mean Platelet Volume 8.2; Monocytes # (A) 0.3 k/uL (0-1.0); Monocytes % (A) 5 %; Neutrophils # (A) 4.3 k/uL (1.3-7.7); Neutrophils % (A) 68 %; Platelet Count 197 k/uL (150-450); RBC 5.47 m/uL (4.30-5.90); RDW 12.3 % (11.5-15.5); WBC 6.4 k/uL (3.8-10.6)
[2022-08-17 11:15] LABS: ALT 46 U/L (4-49); AST 37 U/L (17-59); African American GFR (CKD) >90 (>60 ml/min/1.73 sqM); Albumin 5.2 g/dL (3.5-5.0); Alkaline Phosphatase 76 U/L (38-126); Anion Gap 9 mmol/L; Blood Urea Nitrogen 14 mg/dL (9-20); Calcium 9.5 mg/dL (8.4-10.2); Carbon Dioxide 28 mmol/L (22-30); Chloride 105 mmol/L (98-107); Glucose 89 mg/dL (74-99); Non-African American GFR(CKD) >90 (>60 ml/min/1.73 sqM); Potassium 4.4 mmol/L (3.5-5.1); Sodium 142 mmol/L (137-145); Total Protein 8.9 g/dL (6.3-8.2)
== END 2022-08-17 12:51 | disposition home or self-care (01) ==
LOC: EC 07:24
DX: F29 Unspecified psychosis not due to a substance or known physiological condition (principal); F17.200 Nicotine dependence, unspecified, uncomplicated; F12.90 Cannabis use, unspecified, uncomplicated
CPT/HCPCS: 36415; 80053; 80306; 82075; 85025; 99285